=== PATIENT | male | born 1960 | race American Indian/Alaskan Native ===

== ENCOUNTER 2018-03-01 13:02 | Emergency (ER) | payer OTHER ==
[2018-03-01 13:09] VITALS: BP 129/79
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
== END 2018-03-01 14:10 | disposition home or self-care (01) ==
LOC: ED 13:02
DX: S16.1XXA Strain of muscle, fascia and tendon at neck level, initial encounter (principal); Z96.641 Presence of right artificial hip joint; V49.49XA Driver injured in collision with other motor vehicles in traffic accident, initial encounter; Y93.89 Activity, other specified; Y92.488 Other paved roadways as the place of occurrence of the external cause; Y99.8 Other external cause status
CPT/HCPCS: 99282